=== PATIENT | female | born 2000 | race Caucasian/White ===

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

== ENCOUNTER 2021-08-10 17:33 | Emergency (ER) | payer OTHER ==
[2021-08-10 18:14] VITALS: BP 130/70; PULSE 81; TEMP 98.9; BMI 35.6
[2021-08-10] MEDS ORDERED: IBUPROFEN 600 MG TABLET (FP) PO ONE ×2 (18:32→18:43)
== END 2021-08-10 20:18 | disposition home or self-care (01) ==
LOC: JERFT 17:33 → JER 17:33 → JERFT 20:18
DX: S93.402A Sprain of unspecified ligament of left ankle, initial encounter (principal); W17.2XXA Fall into hole, initial encounter; Y92.9 Unspecified place or not applicable
CPT/HCPCS: 73610-TC-LT-FY; 73630-TC-LT; 99284-25

== ENCOUNTER 2022-01-11 01:58 | Emergency (ER) | payer OTHER ==
[2022-01-11 02:17] VITALS: BP 139/83; PULSE 88; TEMP 98.2; BMI 34.9
[2022-01-11 02:42] LABS: EPI CELLS 11 /uL (0-25.1); HYALINE CASTS 2 /uL (0-3.1); PH,URINE 5.5 (5.0-8.0); URINE APPEARANCE CLOUDY; URINE BACTERIA 235 /uL (0-1359); URINE BILIRUBIN NEGATIVE (NEGATIVE); URINE COLOR YELLOW; URINE GLUCOSE (UA) NEGATIVE (NEGATIVE); URINE KETONE TRACE (NEGATIVE); URINE LEUK ESTERASE 1+ (NEGATIVE); URINE NITRITE NEGATIVE (NEGATIVE); URINE PROTEIN 2+ (NEGATIVE); URINE RBC 280 /uL (0-23.9); URINE WBC 1562 /uL (0-25.8)
[2022-01-11] MEDS ORDERED: SULFAMETHOXAZOLE/TRIMETHOPRIM 800MG/160MG D.S. TABLET PO ONE (02:48)
[2022-01-11] MEDS ORDERED: SULFAMETHOXAZOLE/TRIMETHOPRIM 800MG/160MG D.S. TABLET ONE (02:52)
== END 2022-01-11 02:58 | disposition home or self-care (01) ==
LOC: JER 01:58
DX: N10 Acute pyelonephritis (principal)
CPT/HCPCS: 81003; 84703; 87086; 99283-25

== ENCOUNTER 2024-02-22 19:57 | Emergency (ER) | payer OTHER ==
[2024-02-22 20:11] VITALS: BP 129/72; PULSE 95; RESP 18; TEMP 98.3; BMI 35.4
[2024-02-22] MEDS ORDERED: METHOCARBAMOL 500 MG TABLET ONE (20:49)
[2024-02-22] MEDS ORDERED: ONDANSETRON *ODT* 4 MG TABLET ONE (20:49)
[2024-02-22] MEDS ORDERED: ACETAMINOPHEN 325 MG TABLET (FP) ONE (20:50)
[2024-02-22] MEDS ORDERED: LIDOCAINE 4% PATCH TP ONE (20:50)
[2024-02-22] MEDS: ONDANSETRON *ODT* 4 MG TABLET SL ONE (21:00)
[2024-02-22] MEDS: LIDOCAINE 4% PATCH TP ONE (21:00)
[2024-02-22] MEDS: ACETAMINOPHEN 500 MG TABLET (FP) PO ONE (21:00)
[2024-02-22] MEDS: METHOCARBAMOL 500 MG TABLET PO ONE ×2 (21:01)
[2024-02-22] MEDS ORDERED: ALBUTEROL SO4 HFA INHALER IH ONE (21:07)
[2024-02-22] MEDS: ALBUTEROL SO4 HFA INHALER IH ONE (21:09)
[2024-02-22] MEDS ORDERED: KETOROLAC TROMETHAMINE 30 MG/1 ML VIAL IM ONE (21:58)
[2024-02-22] MEDS ORDERED: LIDOCAINE PATCH REMOVAL MC SCH (22:00)
== END 2024-02-22 22:10 | disposition home or self-care (01) ==
LOC: JER 19:57 → JERFT 19:57 → JER 22:10
DX: R51.9 Headache, unspecified (principal); R11.0 Nausea; H53.149 Visual discomfort, unspecified; V43.62XA Car passenger injured in collision with other type car in traffic accident, initial encounter; Y93.I9 Activity, other involving external motion
CPT/HCPCS: 70450-TC; 99284-25; Q0162

== ENCOUNTER 2024-09-03 03:32 | Emergency (ER) | payer OTHER ==
[2024-09-03] MEDS: ALBUTEROL SO4 2.5/IPRATROPIUM 0.5 INH SOL 3 ML VIAL.NEB. NEB SCH (03:50)
[2024-09-03 03:52] VITALS: BP 132/86; PULSE 130; RESP 26; TEMP 98.1; BMI 31.6
[2024-09-03] MEDS ORDERED: predniSONE 20 MG TABLET (UD) ONE (03:55)
[2024-09-03] MEDS ORDERED: ALBUTEROL SO4 2.5/IPRATROPIUM 0.5 INH SOL 3 ML VIAL.NEB. NEB ONE (03:55)
[2024-09-03] MEDS ORDERED: FAMOTIDINE 20 MG TABLET ONE (03:55)
[2024-09-03] MEDS: predniSONE 20 MG TABLET (UD) PO ONE (04:02)
[2024-09-03] MEDS: FAMOTIDINE 20 MG TABLET PO ONE (04:03)
[2024-09-03] MEDS ORDERED: ALBUTEROL SO4 HFA INHALER IH ONE (05:25)
[2024-09-03] MEDS: ALBUTEROL SO4 HFA INHALER IH ONE (05:29)
== END 2024-09-03 05:29 | disposition home or self-care (01) ==
LOC: JER 03:32
PROC: 3E0F7GC Introduction of Other Therapeutic Substance into Respiratory Tract, Via Natural or Artificial Opening (ICD-10-PCS; principal; 2024-09-03)
DX: J45.901 Unspecified asthma with (acute) exacerbation (principal); R06.02 Shortness of breath; R05.9 Cough, unspecified; R00.0 Tachycardia, unspecified; Z20.822 Contact with and (suspected) exposure to COVID-19
CPT/HCPCS: 0241U-QW; 71046-TC-FY; 99284-25